=== PATIENT | female | born 1975 | race Caucasian/White ===

== ENCOUNTER → 2016-11-22 | Outpatient (CLI) | payer OTHER | LOC: FIMAGING 09:00 | PROVIDERS: ATTEND Obstetrics & Gynecology | DX: Z12.31 Encounter for screening mammogram for malignant neoplasm of breast (principal); Z80.3 Family history of malignant neoplasm of breast | CPT/HCPCS: G0202 ==

== ENCOUNTER 2017-05-22 07:22 | Emergency (ER) | payer OTHER ==
[2017-05-22 07:34] VITALS: RESP 16; TEMP 98.1
[2017-05-22] MEDS ORDERED: HYDROmorphONE/DILAUDID 2 MG/ML INJ IVP ONE (07:52)
--- NOTE | 2017-05-22 08:04 | EDPHY ---
H & P Stated Complaint: SEVERE BACK PAIN Time Seen by Provider: 05/22/17 07:44 - Personal History LMP (Females 10-55): 8-14 Days Ago Current Tetanus Diphtheria and Acellular Pertussis (TDAP): Unsure - Medical/Surgical History Hx Asthma: No Hx Chronic Respiratory Disease: No Hx Diabetes: No Hx Cardiac Disease: No Hx Renal Disease: No Hx Cirrhosis: No Hx Alcoholism: No Hx HIV/AIDS: No Hx Splenectomy or Spleen Trauma: No Other PMH: HERNIATED DISC - Social History Smoking Status: Never smoked Constitutional: Initial Vital Signs Temperature (C) 36.7 C 05/22/17 07:27 Heart Rate 52 L 05/22/17 07:27 Respiratory Rate 16 05/22/17 07:27 Blood Pressure 108/62 05/22/17 07:27 O2 Sat (%) 100 05/22/17 07:27 O2 Delivery Mode Nasal Cannula O2 (L/minute) 100 Allergies/Adverse Reactions: No Known Allergies Allergy (Unverified 05/22/17 07:53) Home Medications: Medication Instructions Recorded oxyCODONE IR [Oxycodone Ir (*)] 5 - 10 mg PO Q6 PRN #20 tab 05/22/17 Medical Decision Making ED Course/Re-evaluation: CHIEF COMPLAINT: Severe back pain HISTORY OF PRESENT ILLNESS: 41-year-old female who injured her back in February. She subsequently had an MRI which revealed an L5-S1 disc herniation to the right. She is having intractable pain but she is only using Tylenol at home currently. She tried a Medrol Dosepak but that did not help very much. She sees Dr. Mauro Buchanan and has an appointment with Dr. Serrato for an injection at 1:00 p.m. Today and that nerve root. She called this morning because she had so much pain that she nearly passed out. She was receiving better relief when she was taking ibuprofen but she had stopped that in order to have the procedure today at 1:00 p.m.. She received some fentanyl in the ambulance and her pain is down to a 2 or 3. REVIEW OF SYSTEMS: A 10 point review of systems was performed and is negative with the exception of the elements mentioned in the history of present illness. PHYSICAL EXAM: HR, BP, O2 Sat, RR. Temp noted General Appearance: Alert, well hydrated, appropriate, and non-toxic appearing. Head: Atraumatic without scalp tenderness or obvious injury Eyes: Pupils equal, round, reactive to light and accommodation, EOMI, no trauma , no injection. Ears: Clear bilaterally, no perforation, normal landmarks Nose: Atraumatic, no rhinorrhea, clear. Throat: There is no erythema or exudates, no lesions, normal tonsils, mucus membranes moist. Neck: Supple, 2+ carotid upstroke, nontender, no lymphadenopathy. Respiratory: No retractions, no distress, no wheezes, and no accessory muscle use. Lungs are clear to auscultation bilaterally. Cardiovascular: Regular rate and rhythm, no murmurs, rubs, or gallops. Bilateral carotid, radial, dorsalis pedis, and posterior tibial pulses intact. Good capillary refill all extremities. Gastrointestinal: Abdomen is soft, nontender, non-distended, no masses, no rebound, no guarding, no peritoneal signs. Musculoskeletal: Normal active ROM of all extremities, atraumatic. Neurological: Alert, appropriate, and interactive. The patient has normal DTRs and non-focal cranial nerves, motor, sensory, and cerebellar exam. Skin: No rashes, good turgor, no nodules on palpation. Past medical history: Disc herniation Past surgical history: Noncontributory Family history: Noncontributory Social history: , employed, does not abuse tobacco drugs or alcohol DIAGNOSTICS/PROCEDURES/CRITICAL CARE TIME: I reviewed the prior MRI and D she has an L5-S1 disc herniation to the right DIFFERENTIAL DIAGNOSIS: The differential diagnosis for the patient's back pain included but was not limited to [musculo-skeletal pain, epidural abscess, herniated disk, spinal fracture, and intra-abdominal causes including urinary system.] MEDICAL DECISION MAKING: This patient has an injection scheduled for 1:00 p.m. Today and I gave the option of being admitted verses getting some more reasonable pain control and then continue to seek outpatient care with Dr. Serrato. That is most likely the best option I feel like her outpatient pain regimen is not adequate. Consequently, I have given her a mg of Dilaudid for longer-acting affect and I will give her some Oxy IR is. She will be discharged as is her desire to follow up with the 1 o'clock appointment. I am in agreement. There are no motor deficits. There are no bowel bladder dysfunction. No fevers or chills Departure - Departure Disposition: Home, Routine, Self-Care Clinical Impression: Herniation of intervertebral disc between L5 and S1 Condition: Good Instructions: Back Pain (ED) Referrals: Patient,NotPresent [Primary Care Provider] - As per Instructions Prescriptions: oxyCODONE IR [Oxycodone Ir (*)] 5 - 10 mg PO Q6 PRN #20 tab PRN Reason: Pain, Severe
[2017-05-22 08:57] VITALS: BP 128/74; PULSE 85; O2SAT 98
== END 2017-05-22 08:56 | disposition home or self-care (01) ==
LOC: EDUNIT#
DX: M51.27 Other intervertebral disc displacement, lumbosacral region (principal)
CPT/HCPCS: 96374; J1170

== ENCOUNTER → 2017-12-22 | Outpatient (CLI) | payer OTHER | LOC: FIMAGING 08:43 | PROVIDERS: ATTEND Obstetrics & Gynecology | DX: Z12.31 Encounter for screening mammogram for malignant neoplasm of breast (principal); Z80.3 Family history of malignant neoplasm of breast ==